=== PATIENT | male | born 1990 ===

== ENCOUNTER 2024-05-25 10:30 | Emergency (ER) | payer BC ==
[2024-05-25] MEDS ORDERED: Sodium Chloride 0.9% 10 ML Syringe FLUSH PRN (10:42)
[2024-05-25] MEDS: Sodium Chloride 0.9% 1,000 ML IV SCH (10:46)
[2024-05-25 11:04] LABS: BASOPHILS ABSOLUTE AUTO 0.01 K/uL (0.00-0.20); BASOPHILS PERCENT AUTO 0.1 % (0.0-2.0); EOSINOPHILS ABSOLUTE AUTO 0.19 K/uL (0.00-0.50); EOSINOPHILS PERCENT AUTO 2.1 % (0.0-5.0); HEMATOCRIT 46.5 % (39.0-49.0); HEMOGLOBIN 16.3 g/dL (13.1-16.8); LYMPHOCYTES ABSOLUTE AUTO 2.23 K/uL (0.50-3.50); LYMPHOCYTES PERCENT AUTO 24.8 % (10.0-50.0); MEAN CORPUSCULAR HEMOGLOBIN 31.5 pg (28.2-33.3); MEAN CORPUSCULAR HGB CONC 35.1 g/dL (31.7-36.0); MEAN CORPUSCULAR VOLUME 89.8 fL (84.0-98.0); MONOCYTES ABSOLUTE AUTO 0.69 K/uL (0.00-1.00); MONOCYTES PERCENT AUTO 7.7 % (2.0-14.0); NEUTROPHILS ABSOLUTE AUTO 5.89 K/uL (1.40-7.00); NEUTROPHILS PERCENT AUTO 65.3 % (45.0-80.0); PLATELET COUNT,PLT 167 K/uL (150-350); RED BLOOD CELL COUNT 5.18 M/uL (4.33-5.41); RED CELL DISTRIBUTION WIDTH 12.1 % (11.2-14.1)
[2024-05-25 11:12] LABS: PROTHROMBIN TIME 10.3 SEC (9.0-11.1)
[2024-05-25] MEDS: Ketorolac 15 MG/ML SDV IVPUSH ONE (11:16)
[2024-05-25] MEDS: Prochlorperazine 10 MG/2 ML SDV IV ONE (11:17)
[2024-05-25] MEDS: diphenhydrAMINE 50 MG/ML SDV IVPUSH ONE (11:17)
[2024-05-25 11:18] LABS: ALBUMIN 4.3 g/dL (3.4-5.0); BILIRUBIN TOTAL 0.5 mg/dL (0.2-1.0); CALCIUM 9.4 mg/dL (8.5-10.1); CARBON DIOXIDE,CO2 24.5 mmol/L (21.0-32.0); CREATININE 0.69 mg/dL (0.51-1.17); EST CRCL DRUG DOSING (CG) 159.69 mL/min; POTASSIUM,K 3.4 mmol/L (3.5-5.1)
[2024-05-25 11:19] LABS: ANION GAP 18.9 meq/L (7-15)
== END 2024-05-25 12:23 | disposition home or self-care (01) ==
LOC: SUPCPDRO 10:30 → LL.ED 10:30
DX: G44.209 Tension-type headache, unspecified, not intractable (principal); I10 Essential (primary) hypertension; F41.0 Panic disorder [episodic paroxysmal anxiety]; E86.0 Dehydration
CPT/HCPCS: 36415; 80053; 84484; 85025; 85610; 93005; 93010; 96361; 96374; 96375; 99284; 99285; J0780; J1200; J1885; J7030

== ENCOUNTER 2025-05-19 02:29 | Emergency (ER) | payer BC | END 2025-05-19 03:05 | disposition home or self-care (01) | LOC: LL.ED 02:29 | DX: F41.9 Anxiety disorder, unspecified (principal); F17.200 Nicotine dependence, unspecified, uncomplicated; I10 Essential (primary) hypertension; Z79.899 Other long term (current) drug therapy | CPT/HCPCS: 99283; 99284 ==

== ENCOUNTER 2025-07-24 08:42 | Emergency (ER) | payer BC ==
[2025-07-24 08:50] VITALS: BP 127/95; PULSE 90
== END 2025-07-24 09:10 | disposition home or self-care (01) ==
LOC: LL.ED 08:42
DX: S51.812A Laceration without foreign body of left forearm, initial encounter (principal); F17.210 Nicotine dependence, cigarettes, uncomplicated; Z79.899 Other long term (current) drug therapy; W28.XXXA Contact with powered lawn mower, initial encounter; Y93.89 Activity, other specified
CPT/HCPCS: 12002; 99282